=== PATIENT | female | born 1995 | race Caucasian/White ===

== ENCOUNTER 2017-06-17 14:14 | Day surgery (SDC) | payer BC ==
[~2017-06-17] VITALS: Ht 170.2 cm; Wt 55.0 kg
[~2017-06-17 14:14] MED LIST: ALPR.25; Atarax10 MG; Naprosyn500 MG PO; TRINESSA LO TA1 EACH
== END 2017-06-17 16:25 | disposition home or self-care (01) ==
LOC: ORSCSDS 14:14
PROVIDERS: Internal Medicine Gastroenterology
PROC: 0DB98ZX Excision of Duodenum, Via Natural or Artificial Opening Endoscopic, Diagnostic (ICD-10-PCS; principal; 2017-06-17 15:45)
PROC: 0DB68ZX Excision of Stomach, Via Natural or Artificial Opening Endoscopic, Diagnostic (ICD-10-PCS; principal; 2017-06-17 15:45)
DX: R11.2 Nausea with vomiting, unspecified (principal); K20.9 Esophagitis, unspecified; K29.80 Duodenitis without bleeding; R19.7 Diarrhea, unspecified; R10.13 Epigastric pain; Z79.3 Long term (current) use of hormonal contraceptives; Z79.899 Other long term (current) drug therapy; K29.70 Gastritis, unspecified, without bleeding
CPT/HCPCS: 88305; 88342; J7120